=== PATIENT | male | born 1955 | race Caucasian/White ===

== ENCOUNTER 2017-10-08 18:35 | Emergency (ER) | payer OTHER ==
[2017-10-08] MEDS: LIDOCAINE 1% (MDV) 10 ML INJ INFIL (19:29)
[2017-10-08] MEDS ORDERED: HYDROCODONE/APAP (5/325) TAB PO (19:30)
== END 2017-10-08 19:42 | disposition home or self-care (01) ==
LOC: FTE 18:35
DX: L72.3 Sebaceous cyst (principal); Z79.4 Long term (current) use of insulin; Z87.891 Personal history of nicotine dependence
CPT/HCPCS: 10060; 99283-25

== ENCOUNTER 2017-12-22 12:39 | Day surgery (SDC) | payer OTHER ==
[~2017-12-22 12:39] MED LIST: CEFAZOLIN 2 GM/50 ML (PMX) 50 ML IVPB; SOD CHLORIDE 0.9% 1,000 ML IV
[2017-12-22] MEDS ORDERED: MIDAZOLAM 1 MG/ML 2 ML INJ (17:10)
[2017-12-22] MEDS ORDERED: FENTAnyl 50 MCG/ML VIAL (17:10)
[2017-12-22] MEDS ORDERED: PROPOFOL 20 ML (18:09)
[2017-12-22] MEDS ORDERED: CEFAZOLIN 1 GM INJ (18:09)
[2017-12-22] MEDS: BUPIVACAINE 0.25%/EPI (MDV) 50 ML VIAL INJ (18:25)
[2017-12-22] MEDS: LIDOCAINE 1% (MPF) 30 ML INJ (18:25)
[2017-12-22] MEDS ORDERED: OXYCODONE/ACETAMINOPHEN (5/325) TAB PO ×2 (18:30)
[2017-12-22] MEDS ORDERED: IBUPROFEN 600 MG TAB PO (18:30)
[2017-12-22] MEDS ORDERED: ONDANSETRON 4 MG INJ IV ×2 (18:30)
== END 2017-12-22 19:38 | disposition home or self-care (01) ==
LOC: SDS 12:39
DX: L72.0 Epidermal cyst (principal); E11.9 Type 2 diabetes mellitus without complications; E78.5 Hyperlipidemia, unspecified
CPT/HCPCS: 21930; 82962; 88307